=== PATIENT | female | born 1995 | race Two or more races ===

== ENCOUNTER 2018-11-28 15:00 | Outpatient (AMBR) | payer MEDICAID, SELFPAY ==
--- NOTE | 2018-11-08 13:43 | PT.ODAYNRPT ---
PT Outpatient Daily Note Date of Service: November 08, 2018 OP Daily Note Visit Reasons: pain Outpatient Physical Therapy Treatment Date: 11/08/18 Subjective: pt reported having increase in pain upon visit today. Objective: see flow sheet. Assessment: pt walked in wearing sandals which could be risky while performing balance exercises. advised pt to wear shoes next visit for safety. pt did have improved balance on the rocker board as indicated by less use of the rail. she did use one hand with only finger tips. pt was more concentrated on balance control. squatting on the board still required one hand assistance but had good posture. pt requested hot pack post ther ex. Plan: continue POC per PT. Length of Time (minutes) of Treatment: 30 Minutes Office Procedures PT Procedures PT Date of Service: 11/08/18 Therapeutic Exercise 30 minutes: Yes
--- NOTE | 2018-11-12 14:02 | PT.ODAYNRPT ---
PT Outpatient Daily Note Date of Service: November 12, 2018 OP Daily Note Visit Reasons: pain Outpatient Physical Therapy Treatment Date: 11/12/18 Subjective: Pt says she is doing well and the foot is doing better, less pain Objective: See F/S for therex MT: PPM into great toe flexion x7' 15 holds, scar STM Great toe flexion: 0 deg Assessment: Pt lacks great toe flexion A/PROM to neutral due to extensor tendon myofascial tightness. End-range extension is painful which limits extension PROM but she has good stepping and lunging tolerance. Plan: Improve great toe flexion ROM Length of Time (minutes) of Treatment: 30 Minutes Office Procedures PT Procedures PT Date of Service: 11/12/18 Therapeutic Exercise 30 minutes: Yes PT Procedures PT Date of Service: 11/08/18 Therapeutic Exercise 30 minutes: Yes
--- NOTE | 2018-11-15 11:44 | PT.ODAYNRPT ---
PT Outpatient Daily Note Date of Service: November 15, 2018 OP Daily Note Visit Reasons: pain Outpatient Physical Therapy Treatment Date: 11/15/18 Subjective: pt reports ankle popping more often. she followed up with doctor yesterday and they ordered an x-ray for the R ankle. Objective: see flow sheet. Assessment: added new exercises to increase strength of the BLE using resistance. pt had more difficulty with the monster walks than the side steps using thera band. after a few attempts of the monster walks she was able to improve the exercise. calf raises on the rocker board were a bit challenging and noted less than normal ROM of the PF motion. heat pack post ther ex. Plan: continue POC per PT. attempt the TM next visit. Length of Time (minutes) of Treatment: 30 Minutes Office Procedures PT Procedures PT Date of Service: 11/12/18 Therapeutic Exercise 30 minutes: Yes PT Procedures PT Date of Service: 11/15/18 Therapeutic Exercise 30 minutes: Yes PT Procedures PT Date of Service: 11/08/18 Therapeutic Exercise 30 minutes: Yes
--- NOTE | 2018-11-19 16:32 | PT.ODAYNRPT ---
PT Outpatient Daily Note Date of Service: November 19, 2018 OP Daily Note Visit Reasons: pain Outpatient Physical Therapy Treatment Date: 11/19/18 Subjective: Pt says the foot on the bottom is hurting more today and points to the met heads. Objective: See F/S for therex MT: PPM into great toe flexion, 15 holds, STM over met heads x7' Great toe flexion: 0 deg Assessment: Pt lacks great toe flexion A/PROM to neutral due to extensor tendon myofascial tightness. End-range extension is painful which limits extension PROM but she has good stepping and lunging tolerance. Mod High TTP of plantar aspect of foot. Plan: Improve great toe flexion ROM Length of Time (minutes) of Treatment: 30 Minutes Office Procedures PT Procedures PT Date of Service: 11/12/18 Therapeutic Exercise 30 minutes: Yes PT Procedures PT Date of Service: 11/15/18 Therapeutic Exercise 30 minutes: Yes PT Procedures PT Date of Service: 11/19/18 PT Procedures PT Date of Service: 11/08/18 Therapeutic Exercise 30 minutes: Yes
--- NOTE | 2018-11-28 15:41 | PT.ODAYNRPT ---
PT Outpatient Daily Note Date of Service: November 28, 2018 OP Daily Note Visit Reasons: pain Outpatient Physical Therapy Treatment Date: 11/28/18 Subjective: Pt says the foot on the bottom is hurting more today and points to the met heads. Objective: See F/S for therex MT: PPM into great toe flexion, 15 holds, STM over met heads x5' Great toe flexion: 0 deg Assessment: Pt lacks great toe flexion A/PROM to neutral due to extensor tendon myofascial tightness. End-range extension is painful which limits extension PROM but she has good stepping and lunging tolerance. Mod High TTP of plantar aspect of foot. Plan: Improve great toe ROM Length of Time (minutes) of Treatment: 30 Minutes Office Procedures PT Procedures PT Date of Service: 11/12/18 Therapeutic Exercise 30 minutes: Yes PT Procedures PT Date of Service: 11/15/18 Therapeutic Exercise 30 minutes: Yes PT Procedures PT Date of Service: 11/19/18 Therapeutic Exercise 30 minutes: Yes PT Procedures PT Date of Service: 11/08/18 Therapeutic Exercise 30 minutes: Yes PT Procedures PT Date of Service: 11/28/18 OP PT Eval Mod Complex 30 minutes: Yes
== END 2018-12-05 23:59 | disposition home or self-care (01) ==
PROVIDERS: PCP Family Medicine; Referring Provider Family Medicine; Visit Provider Physician Assistant
DX: M79.671 Pain in right foot (principal); Z98.890 Other specified postprocedural states; R26.2 Difficulty in walking, not elsewhere classified; I10 Essential (primary) hypertension
CPT/HCPCS: 97110

== ENCOUNTER 2024-10-19 20:20 | Emergency (ER) | payer MEDICAID, SELFPAY ==
[2024-10-19 20:21] VITALS: BMI 23.8
[2024-10-19 21:29] VITALS: BP 110/61; PULSE 115; RESP 22; TEMP 39.5; O2SAT 96
--- NOTE | 2024-10-19 21:46 | EKG_ITS ---
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
--- NOTE | 2024-10-19 21:46 | XR_ITS ---
Examination: PA lateral chest 2 views Technique: Upright PA lateral chest 2 views Exam date and time: October 19, 2024 2153 hrs. Indications: Sepsis protocol, chills fever pain chest since yesterday Findings: Normal heart size. Lungs are clear. The osseous structures are intact with moderate thoracic dextroscoliosis Impression: No pneumonia identified
--- NOTE | 2024-10-19 21:48 | PD.EDRME ---
Rapid Medical Screening Exam RME Arrival date/time: 10/19/24 20:20 29-year-old female presents emergency department complaining of headache, fever, and shortness of breath since yesterday. Chief Complaint: Flu Like Symptoms Time Seen by Provider: 10/19/24 21:20 Vital signs: Vital Signs Temperature 103.1 F H 10/19/24 21:29 Pulse Rate 115 H 10/19/24 21:29 Respiratory Rate 22 H 10/19/24 21:29 Blood Pressure 110/61 10/19/24 21:29 Pulse Oximetry (%) 96 10/19/24 21:29 Oxygen Delivery Method Room Air 10/19/24 21:29 Vital signs reviewed by provider: Yes
[2024-10-19 22:07] VITALS: TEMP 39.5
[2024-10-19] MEDS: ACETAMINOPHEN 500 MG TABLET 1000 MG PO (22:07)
[2024-10-19 22:26] LABS: Lactate (Lactic Acid) 1.1 mMol/L (0.4-2.0)
[2024-10-19 22:27] LABS: Basophils % (Auto) 0 % (0-2.5); Eosinophils % (Auto) 0 % (0-10); Hematocrit 39.5 % (36.0-46.0); Hemoglobin 13.2 g/dL (12.0-16.0); Immature Granulocytes % (Auto) 0 % (0-0); Immature Granulocytes Auto 0.03 Thou/mm3 (0.00-0.00); Lymphocytes # (Auto) 1.1 Thou/mm3 (1.0-4.8); Lymphocytes % (Auto) 12 % (10-50); Mean Corpuscular HGB Conc 33.4 g/dl (31.0-37.0); Mean Corpuscular Hemoglobin 32.7 pg (25.0-35.0); Mean Corpuscular Volume 98 fL (80-100); Monocytes # (Auto) 0.6 Thou/mm3 (0.0-0.8); Monocytes % (Auto) 7 % (0-12); Neutrophils # (Auto) 7.3 Thou/mm3 (1.8-7.7); Neutrophils % (Auto) 81 % (37-80); Nucleated Red Blood Cell % 0 /100 WBC (0); Platelet Count 212 Thou/mm3 (140-440); RDW Standard Deviation 43.5 fL (36.4-46.3); Red Blood Count 4.04 Miln/mm3 (4.00-5.20)
[2024-10-19 22:53] LABS: Collection Type, Urine Clean Catch
[2024-10-19 23:05] LABS: Partial Thromboplastin Time 30.4 Seconds (22.0-36.0); Prothrombin Time 11.4 Seconds (9.0-12.2)
[2024-10-19 23:14] LABS: Alanine Aminotransferase 18 U/L (10-49); Albumin, Serum 4.7 gm/dL (3.5-5.0); Albumin/Globulin Ratio 1.7 (1.2-2.2); Alkaline Phosphatase 70 U/L (46-116); Anion Gap 9 (7-16); Aspartate Amino Transferase 26 U/L (0-34); BUN/Creatinine Ratio 11 Ratio (12-20); Bilirubin,Total 0.6 mg/dL (0.3-1.2); Blood Urea Nitrogen 8 mg/dL (9-23); Calcium 9.7 mg/dL (8.3-10.6); Calcium (Corrected) 9.7 mg/dL (8.5-10.1); Carbon Dioxide 25.5 mMol/L (20.0-31.0); Chloride 101 mMol/L (98-107); Creatinine (Component) 0.7 mg/dL (0.6-1.3); Globulin 2.8 gm/dL (2.3-3.5); Glucose 117 mg/dL (74-106); Lipase 34 U/L (12-53); Magnesium 1.6 mg/dL (1.6-2.6); Osmolality,Calculated 269 (275-295); Phosphorous 2.6 mg/dL (2.4-5.1); Potassium 3.7 mMol/L (3.4-5.1); Procalcitonin 0.24 ng/ml (0.0-0.49); Sodium 135 mMol/L (136-145); Total Protein 7.5 gm/dL (5.7-8.2); Troponin I < 0.002 ng/mL (0.0-0.045); eGFR > 60 See Note
[2024-10-19 23:22] LABS: Bacteria,Urine 1+; Bilirubin,Urine Negative (Negative); Blood,Urine Trace (Negative); Clarity,Urine Turbid (Clear/Hazy); Color,Urine Lt-Yellow (Lt Yel-Yel); Glucose, Urine Negative (Negative); Ketones,Urine Negative (Negative); Leukocyte Esterase,Urine Positive (Negative); Nitrite,Urine Positive (Negative); Protein,Urine Trace (Neg - Trace); RBC,Urine 5 /hpf (0-3); Specific Gravity,Urine 1.019 (1.001-1.035); Squamous Epithelial Cell,Urine 8 /hpf (0-5); WBC,Urine 26 /hpf (0-5)
[2024-10-19 23:23] VITALS: BP 128/81; PULSE 107; RESP 18; TEMP 38.2; O2SAT 100
[2024-10-19 23:27] LABS: B-Type Natriuretic Peptide < 20 pg/mL (0-100)
--- NOTE | 2024-10-20 | EDNOTE_ITS ---
<Statement entered by Ilda Herring MD - 10/29/24 11:49> As co-signing physician, I was present and available for consult prn. I concur with the plan and care as documented by the midlevel provider. Upper Respiratory Inf. RME/HPI General Chief Complaint: Flu Like Symptoms Stated Complaint: COUGH, FEVER AND SHAKING X2 DAYS Time Seen by Provider: 10/19/24 21:20 Source: patient Arrival date/time: 10/19/24 20:20 29-year-old female presents emergency department complaining of headache, fever, and shortness of breath since yesterday. Mode of arrival: ambulatory Limitations: no limitations RME / HPI RME / HPI Narrative: 10/19/24 20:20 29-year-old female presents emergency department complaining of headache, fever, and shortness of breath since yesterday. Related Data Home Medications ?Medication ?Instructions ?Recorded ?Confirmed vits no.126-ferrous fum 1 tab PO DAILY 05/21/21 05/21/21 28 mg iron-folic acid 800 mcg tablet (Classic ) Previous Rx's ?Medication ?Instructions ?Recorded albuterol sulfate 90 mcg/actuation 2 puff inhalation Q6H PRN 10/19/22 aerosol inhaler (Ventolin HFA) shortness of breath or wheezing #8.5 grams promethazine-DM 6.25 mg-15 mg/5 mL 5 ml PO Q6H PRN cough #240 mL 10/19/22 oral syrup cyclobenzaprine 5 mg tablet 5 mg PO TID PRN muscle spasm #30 05/07/23 tabs ibuprofen 600 mg tablet 600 mg PO Q6H #30 tabs 05/07/23 ibuprofen 600 mg tablet 600 mg PO Q8H PRN pain #20 tabs 10/20/24 sulfamethoxazole 800 1 tab PO BID 7 days #14 tabs 10/20/24 mg-trimethoprim 160 mg tablet (Bactrim DS) Allergies Allergy/AdvReac Type Severity Reaction Status Date / Time lisinopril Allergy Severe Swelling Verified 07/28/23 14:51 of Lip/Tongue/Throat Review of Systems Review of Systems Systems Reviewed: All systems reviewed, normal except as documented Constitutional Constitutional: Reports system reviewed and no additional complaints, except as documented, Denies body ache(s), Denies chills, Reports fever(s) and Reports headache(s) Eyes Eyes: Reports system reviewed and no additional complaints, except as documented and Denies change in vision ENT Ears, Nose, Mouth, and Throat: Reports system reviewed and no additional complaints, except as documented, Denies disequilibrium, Denies dizziness, Reports headache(s), Denies sore throat and Denies vertigo Cardiovascular Cardiovascular: Reports system reviewed and no additional complaints, except as documented, Denies chest pain and Reports dyspnea Respiratory Respiratory: Reports system reviewed and no additional complaints, except as documented, Denies chest congestion, Denies cough and Reports dyspnea Gastrointestinal Gastrointestinal: Reports system reviewed and no additional complaints, except as documented, Denies abdominal pain, Denies nausea and Denies vomiting Musculoskeletal Musculoskeletal: Reports system reviewed and no additional complaints, except as documented, Denies abnormal gait and Denies arthralgias Integumentary/Breasts Skin/Breast: Reports system reviewed and no additional complaints, except as documented, Denies erythema, Denies rash and Denies wounds Neurologic Neurologic: Reports system reviewed and no additional complaints, except as documented, Denies abnormal gait, Denies disequilibrium, Denies dizziness, Reports headache(s) and Denies vertigo Past Medical History Past Medical History NEUROLOGIC: Negative Neurological Disorders CARDIAC: Positive Cardiac Disorders and Hypertension; Negative Congestive Heart Failure RESPIRATORY: Negative Chronic Obstructive Pulmonary Disease (COPD) GASTROINTESTINAL: Negative Gastrointestinal Disorders GENITOURINARY: Negative Genitourinary Disorders or Renal Disease REPRODUCTIVE: Positive Previous Pregnancies MUSCULOSKELETAL: Negative Musculoskeletal Disorders ENDOCRINE: Negative Endocrine Disorders, Diabetes Mellitus Type 1 or Diabetes Mellitus Type 2 HEMATOLOGIC: Negative Blood Disorders PSYCHO/SOCIAL: Positive Anxiety Social History SMOKING STATUS: Never smoker SUBSTANCE USE: does not use ED Exam General Limitations: Present no limitations General appearance: Present alert and in no apparent distress Head Head exam: Present atraumatic Eye Eye exam: Present normal appearance, PERRL and EOMI ENT ENT exam: Present normal exam, normal oropharynx and mucous membranes moist Neck Neck exam: Present normal inspection, full ROM and trachea midline Chest Chest inspection: Present normal inspection and symmetric chest wall rise Respiratory Respiratory exam: Present normal lung sounds bilaterally Cardiovascular Cardiovascular exam: Present regular rate, normal rhythm and normal heart sounds Abdominal Exam Abdominal exam: Present soft and normal bowel sounds Extremities Exam Extremities exam: Present normal inspection and full ROM Back Exam Back exam: Present normal inspection and full ROM Neurological Exam Neurological exam: Present alert, oriented X3 and CN II-XII intact Psychiatric Psychiatric exam: Present normal affect and normal mood Skin Skin exam: Present warm, dry, intact and normal color Course Quality Measures none Orders Category Date Time Status Bedside COVID-19 Antigen Test NOW Care 10/19/24 21:46 Completed Bedside Influenza A&B Antigen Test NOW Care 10/19/24 21:46 Completed EKG (ED ONLY) *Do not use* NOW Care 10/19/24 21:46 Completed EKG (ED Only) Stat Exams 10/19/24 21:46 Draft XR chest 2V Stat Exams 10/19/24 21:46 Completed B-Type Natriuretic Peptide Stat Lab 10/19/24 22:10 Completed Blood Culture (Lab) Stat Lab 10/19/24 22:10 Completed CBC Stat Lab 10/19/24 22:10 Completed Comprehensive Metabolic Panel Stat Lab 10/19/24 22:10 Completed Lactate (Lactic Acid) Stat Lab 10/19/24 22:10 Completed Lipase Stat Lab 10/19/24 22:10 Completed Magnesium Stat Lab 10/19/24 22:10 Completed Partial Thromboplastin Time Stat Lab 10/19/24 22:10 Completed Phosphorous Stat Lab 10/19/24 22:10 Completed Procalcitonin Stat Lab 10/19/24 22:10 Completed Prothrombin Time with INR Stat Lab 10/19/24 22:10 Completed Troponin I Stat Lab 10/19/24 22:10 Completed Urinalysis Stat Lab 10/19/24 22:12 Completed Urine Culture Stat Lab 10/19/24 22:12 Completed Acetaminophen Tab [Tylenol ES Tab] Med 10/19/24 21:47 Discontinued 1,000 mg PO X1 ONE Vital Signs Vital signs: Vital Signs Temperature 103.1 F H 10/19/24 21:29 Pulse Rate 115 H 10/19/24 21:29 Respiratory Rate 22 H 10/19/24 21:29 Blood Pressure 110/61 10/19/24 21:29 Pulse Oximetry (%) 96 10/19/24 21:29 Oxygen Delivery Method Room Air 10/19/24 21:29 96% RA WNL. Procedures -ED EKG Interpretation #1: Date of EK10/19/24 Time of EK:22 Rate: 106 Interpretation: Interpreted by me EKG Impression: No acute ST-T changes, No ectopy, No ischemic changes, Sinus tachycardia and Normal QRS Upper Respiratory Infection MDM Narrative MDM Narrative:: 29-year-old female presents emergency department complaining of headache, fever, and shortness of breath since yesterday. SIRS criteria met due to fever and tachycardia. normal lactic and chest XR unremarkable. Lab work was unremarkable other than positive for influenza and urinalysis suggestive of acute UTI. Patient appears non toxic and hemodynamically stable. Patient data External records reviewed:: [facility] previous records Clinical information provided by:: patient and family Social determinants that could affect healthcare access:: none Patient has the following chronic illnesses:: see chart How is presenting disease/condition affected by chronic disease/condition?: uneffected by Evaluation data The following diagnostics were reviewed and interpreted by me:: lab results, radiology exam(s) and EKG tracing(s) Lab and/or radiology exams considered but not ordered:: ordered Interpretation Summary: interpreted by me Medications / Prescriptions Medications or Prescriptions considered but not ordered:: ordered Medication administrations:: Medication Administration History Discontinued Medications Acetaminophen (Acetaminophen 500 Mg Tablet) 1,000 mg PO X1 ONE Stop: 10/19/24 21:48 Last Admin: 10/19/24 22:07 Dose: 1,000 mg Documented By: given Consultations Consultation(s) initiated? (list below): No Diagnosis Upper Respiratory Differential Diagnosis: upper respiratory infection, sinusitis, viral infection, bronchitis, influenza and pharyngitis Most likely diagnosis given after review of the tests above:: influenza UTI Admission Indicated Admission indicated?: not indicated Admission Request Was there a request for admission?: No Disposition Plan Disposition Plan: Discharge Discharge Attestation Discharge Attestation: The patient and all family members were given an opportunity to ask questions and understood the discharge instructions. Discharge instructions specifically effects, indications for sooner follow up or return to the emergency department, and the expected course of current diagnosis. Patient condition: Stable Discharge Plan Plan Patient Disposition: HOME (Self Care) Disposition Comment: Stable Prescriptions/Referrals Prescriptions/Med Rec: New sulfamethoxazole-trimethoprim [Bactrim DS] 800-160 mg tablet 1 tab PO BID 7 Days Qty: 14 0RF ibuprofen 600 mg tablet 600 mg PO Q8H PRN (Reason: pain) Qty: 20 0RF No Action Classic 28 mg iron- 800 mcg tablet 1 tab PO DAILY Patient Comments: TAKE 1 TABLET BY MOUTH EVERY DAY FOR 30 DAYS promethazine-DM 6.25-15 mg/5 mL syrup 5 ml PO Q6H PRN (Reason: cough) Qty: 240 0RF albuterol sulfate [Ventolin HFA] 90 mcg/actuation HFA aerosol inhaler 2 puff inhalation Q6H PRN (Reason: shortness of breath or wheezing) Qty: 8.5 0RF ibuprofen 600 mg tablet 600 mg PO Q6H Qty: 30 0RF cyclobenzaprine 5 mg tablet 5 mg PO TID PRN (Reason: muscle spasm) Qty: 30 0RF Referrals: Gustavo Weber MD [Primary Care Provider] - In 1 week Problem List Clinical Impression: Influenza, UTI (urinary tract infection) Patient/Caregiver Discharge Instructions Discharge Activity: activity as tolerated Education Materials: ED Influenza (Adult), ED CYSTITIS Female Adult Additional Instructions: Take ibuprofen or Tylenol as needed for fever or pain. Drink plenty of fluids to stay hydrated and get plenty of rest. Urinalysis consistent with UTI take antibiotic as prescribed. Follow-up with primary care provider in 2 to 3 days. Return to the emergency department for any worsening symptoms or as needed. Print Language: Yakut Stand Alone Forms: [facility] Award Info., Patient Portal Info Letter PA/JUANA Supervising Physician PA/JUANA Supervising Physician: Dr. Herring
[2024-10-20 00:04] VITALS: TEMP 38.2
== END 2024-10-20 00:11 | disposition home or self-care (01) ==
PROVIDERS: Emergency Provider Emergency Medicine; PCP Family Medicine
DX: J11.1 Influenza due to unidentified influenza virus with other respiratory manifestations (principal); N39.0 Urinary tract infection, site not specified; R00.0 Tachycardia, unspecified; I10 Essential (primary) hypertension
CPT/HCPCS: 36415; 71046; 80053; 81001; 83605; 83690; 83735; 83880; 84100; 84145; 84484; 85025; 85610; 85730; 87040; 87077; 87086; 87186; 87400; 87811; 93005; 99283; A9270

== ENCOUNTER 2024-11-11 12:49 | Emergency (ER) | payer MEDICAID, SELFPAY ==
[2024-11-11 13:08] VITALS: BP 168/105; PULSE 91; RESP 18; TEMP 36.7; O2SAT 100; BMI 23.7
--- NOTE | 2024-11-11 13:09 | EKG_ITS ---
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
--- NOTE | 2024-11-11 13:10 | PD.EDANX ---
ED Anxiety RME/HPI General Chief Complaint: Shortness of Breath/Dyspnea Stated Complaint: sudden onset sob x 20 minutes ago Time Seen by Provider: 11/11/24 13:01 Arrival date/time: 11/11/24 12:49 RME / HPI RME / HPI narrative: This section includes all my notes and documentations, including HPI, PE, and ED course.? Delio Claire MD HPI: 29 year old female with a history of anxiety presents to the ED with complaints of shortness of breath, chest heaviness, and heightened anxiety. She reports that these symptoms are similar to previous episodes of anxiety, which typically resolve on their own. Other symptoms can include fear, pounding and racing heart, sweating, chills, shaking, stomach pain, nausea, numbness and tingling in the hands and feet and face, confusion, hot flashes, and feeling faint. Reports frequent episodes since yesterday. No other complaints. ROS: All negative except as documented in HPI. Physical Exam: General:? Alert and oriented.??Appears anxious. Eyes:? Conjunctivae and lids clear.?? ENT:? No nasal congestion.?? Neck:? Supple.?? Heart: RRR. Lungs:? No respiratory distress. Good air movement.? No rhonchi, wheezing, rales.?? Skin:? Warm and dry.?? Neuro:? Alert and oriented X 3.?? I reviewed all diagnostic test results. My interpretation of the EKG is?sinus rhythm with no acute ST?T changes. Blood tests unremarkable, including negative troponin. At this point, diagnoses include?anxiety. Treatment here included?Xanax. Oral KCl 40 mEq given for hypokalemia. Significant improvement noted. Recommended more outpatient cardiac workup. Based on my best medical judgment, made decision no further evaluation or treatment indicated at this time.? Patient understands and agrees to the discharge instructions customized and printed, see below. Discharge instructions from Dr. Claire: 1. After extensive evaluation, there is no life-threatening condition.? Such as heart attack. 2. Your symptoms may be due to underlying stress or anxiety or nerves.? This is fairly common. 3. Take Xanax as needed.? Whether this helps or not will be valuable information to your private doctors. 4. See a private doctor on 11/12/2024 for recheck. Ask to review all test results and official radiology reports, to make sure you receive all necessary follow-ups and monitoring, including your potassium level which was very low today. To make sure there is no serious underlying heart condition, ask to help you get more tests for your heart that cannot be done here in the ER.? Such as Holter Monitor (cardiac monitoring at home from a day to even a month), heart stress test (on treadmill or with medication), echocardiogram (imaging of your heart structures), heart catherization (checking for blockages in your heart arteries), and a referral to see a Supervisor Record Press. 5. Seek immediate medical care with worsening or with any concerns.?? Related Data Home Medications ?Medication ?Instructions ?Recorded ?Confirmed vits no.[id number]-ferrous fum 1 tab PO DAILY 05/21/21 05/21/21 28 mg iron-folic acid 800 mcg tablet (Classic ) Previous Rx's ?Medication ?Instructions ?Recorded albuterol sulfate 90 mcg/actuation 2 puff inhalation Q6H PRN 10/19/22 aerosol inhaler (Ventolin HFA) shortness of breath or wheezing #8.5 grams promethazine-DM 6.25 mg-15 mg/5 mL 5 ml PO Q6H PRN cough #240 mL 10/19/22 oral syrup cyclobenzaprine 5 mg tablet 5 mg PO TID PRN muscle spasm #30 05/07/23 tabs ibuprofen 600 mg tablet 600 mg PO Q6H #30 tabs 05/07/23 ibuprofen 600 mg tablet 600 mg PO Q8H PRN pain #20 tabs 10/20/24 alprazolam 0.5 mg tablet (Xanax) 0.5 mg PO BID PRN anxiety #10 tabs 11/11/24 Allergies Allergy/AdvReac Type Severity Reaction Status Date / Time lisinopril Allergy Severe Swelling Verified 11/11/24 12:51 of Lip/Tongue/Throat Review of Systems Review of Systems Systems Reviewed: All systems reviewed, normal except as documented Past Medical History Past Medical History CARDIAC: Positive Cardiac Disorders and Hypertension REPRODUCTIVE: Positive Previous Pregnancies PSYCHO/SOCIAL: Positive Anxiety Social History SMOKING STATUS: Never smoker SUBSTANCE USE: does not use ED Exam Narrative Physical exam: As noted in HPI Course Quality Measures none Orders Category Date Time Status EKG (ED ONLY) *Do not use* NOW Care 11/11/24 13:09 Active EKG (ED Only) Stat Exams 11/11/24 13:09 Ordered CBC Stat Lab 11/11/24 13:10 Ordered CMP [Comprehensive Metabolic Panel] Stat Lab 11/11/24 13:10 Ordered Magnesium Stat Lab 11/11/24 13:10 Ordered TSH [Thyroid Stimulating Hormone] Stat Lab 11/11/24 13:10 Ordered Troponin I Stat Lab 11/11/24 13:10 Ordered ALPRazoLAM [Xanax] Med 11/11/24 13:09 Discontinued 0.5 mg PO X1 ONE Vital Signs Vital signs: Vital Signs Temperature 98.1 F 11/11/24 13:08 Pulse Rate 91 11/11/24 13:08 Respiratory Rate 18 11/11/24 13:08 Blood Pressure 168/105 H 11/11/24 13:08 Pulse Oximetry (%) 100 11/11/24 13:08 Oxygen Delivery Method Room Air 11/11/24 13:08 Anxiety MDM Narrative MDM Narrative: Padmini Dinh am scribing for and in the presence of Dr. Claire. Patient data External records reviewed:: [facility] previous records (I reviewed ED visit on 10/20/2024 ) Clinical information provided by:: patient Social determinants that could affect healthcare access:: mental health (anxiety ) Patient has the following chronic illnesses:: Anxiety How is presenting disease/condition affected by chronic disease/condition?: exacerbated by Evaluation data The following diagnostics were reviewed and interpreted by me:: lab results and EKG tracing(s) (My interpretation of the EKG is: Sinus tachycardia (113 bpm) with nonspecific ST-T changes. Delio Claire MD) Lab and/or radiology exams considered but not ordered:: None Interpretation Summary: Anxiety Medications / Prescriptions Medications or Prescriptions considered but not ordered:: None Medication administrations:: Medication Administration History Discontinued Medications Alprazolam (Alprazolam 0.25 Mg Tablet) 0.5 mg PO X1 ONE Stop: 11/11/24 13:10 Consultations Consultation(s) initiated? (list below): No Diagnosis Differential diagnosis anxiety: hyperventilation, panic disorder, acute anxiety and other (Palpitations) Most likely diagnosis given after review of the tests above:: Anxiety Admission Indicated Admission indicated?: not indicated Explain why admission is indicated or not indicated:: Does not meet admission criteria Admission Request Was there a request for admission?: No Disposition Plan Disposition Plan: Discharge Discharge Attestation Discharge Attestation: The patient and all family members were given an opportunity to ask questions and understood the discharge instructions. Discharge instructions specifically effects, indications for sooner follow up or return to the emergency department, and the expected course of current diagnosis. Patient condition: Stable Discharge Plan Plan Patient Disposition: HOME (Self Care) Prescriptions/Referrals Prescriptions/Med Rec: New alprazolam [Xanax] 0.5 mg tablet 0.5 mg PO BID PRN (Reason: anxiety) Qty: 10 0RF No Action Classic 28 mg iron- 800 mcg tablet 1 tab PO DAILY Patient Comments: TAKE 1 TABLET BY MOUTH EVERY DAY FOR 30 DAYS promethazine-DM 6.25-15 mg/5 mL syrup 5 ml PO Q6H PRN (Reason: cough) Qty: 240 0RF albuterol sulfate [Ventolin HFA] 90 mcg/actuation HFA aerosol inhaler 2 puff inhalation Q6H PRN (Reason: shortness of breath or wheezing) Qty: 8.5 0RF ibuprofen 600 mg tablet 600 mg PO Q6H Qty: 30 0RF cyclobenzaprine 5 mg tablet 5 mg PO TID PRN (Reason: muscle spasm) Qty: 30 0RF ibuprofen 600 mg tablet 600 mg PO Q8H PRN (Reason: pain) Qty: 20 0RF Referrals: Mounika Raza, POLITICAL CONSULTANT [Primary Care Provider] - In 1 week Problem List Clinical Impression: Palpitations Patient/Caregiver Discharge Instructions Discharge Activity: activity as tolerated Education Materials: ED Anxiety Reaction, ED Palpitations Additional Instructions: Discharge instructions from Dr. Claire: 1. After extensive evaluation, there is no life-threatening condition.? Such as heart attack. 2. Your symptoms may be due to underlying stress or anxiety or nerves.? This is fairly common. 3. Take Xanax as needed.? Whether this helps or not will be valuable information to your private doctors. 4. See a private doctor on 11/12/2024 for recheck. Ask to review all test results and official radiology reports, to make sure you receive all necessary follow-ups and monitoring, including your potassium level which was very low today. To make sure there is no serious underlying heart condition, ask to help you get more tests for your heart that cannot be done here in the ER.? Such as Holter Monitor (cardiac monitoring at home from a day to even a month), heart stress test (on treadmill or with medication), echocardiogram (imaging of your heart structures), heart catherization (checking for blockages in your heart arteries), and a referral to see a Supervisor Record [employer]. 5. Seek immediate medical care with worsening or with any concerns.?? Print Language: Pakistani Stand Alone Forms: [facility] Info., Patient Portal Info Letter
[2024-11-11 14:20] LABS: Basophils % (Auto) 0 % (0-2.5); Eosinophils % (Auto) 0 % (0-10); Hematocrit 37.2 % (36.0-46.0); Hemoglobin 12.5 g/dL (12.0-16.0); Immature Granulocytes % (Auto) 0 % (0-0); Immature Granulocytes Auto 0.01 Thou/mm3 (0.00-0.00); Lymphocytes # (Auto) 1.5 Thou/mm3 (1.0-4.8); Lymphocytes % (Auto) 31 % (10-50); Mean Corpuscular HGB Conc 33.6 g/dl (31.0-37.0); Mean Corpuscular Hemoglobin 32.6 pg (25.0-35.0); Mean Corpuscular Volume 97 fL (80-100); Monocytes # (Auto) 0.4 Thou/mm3 (0.0-0.8); Monocytes % (Auto) 8 % (0-12); Neutrophils % (Auto) 60 % (37-80); Nucleated Red Blood Cell % 0 /100 WBC (0); Platelet Count 191 Thou/mm3 (140-440); RDW Standard Deviation 44.9 fL (36.4-46.3); Red Blood Count 3.83 Miln/mm3 (4.00-5.20)
[2024-11-11 14:41] LABS: Troponin I < 0.002 ng/mL (0.0-0.045)
[2024-11-11 14:43] LABS: Alanine Aminotransferase 10 U/L (10-49); Albumin, Serum 4.8 gm/dL (3.5-5.0); Albumin/Globulin Ratio 1.7 (1.2-2.2); Alkaline Phosphatase 62 U/L (46-116); Anion Gap 9 (7-16); Aspartate Amino Transferase 13 U/L (0-34); BUN/Creatinine Ratio 12 Ratio (12-20); Bilirubin,Total 1.2 mg/dL (0.3-1.2); Blood Urea Nitrogen 7 mg/dL (9-23); Calcium 9.7 mg/dL (8.3-10.6); Calcium (Corrected) 9.7 mg/dL (8.5-10.1); Carbon Dioxide 26.1 mMol/L (20.0-31.0); Chloride 104 mMol/L (98-107); Creatinine (Component) 0.6 mg/dL (0.6-1.3); Estimated Creatinine Clearance 128.3 mL/min (>60); Globulin 2.9 gm/dL (2.3-3.5); Glucose 132 mg/dL (74-106); Magnesium 1.6 mg/dL (1.6-2.6); Osmolality,Calculated 277 (275-295); Potassium 2.9 mMol/L (3.4-5.1); Sodium 139 mMol/L (136-145); Thyroid Stimulating Hormone 1.73 uIU/mL (0.55-4.78); Total Protein 7.7 gm/dL (5.7-8.2); eGFR > 60 See Note
[2024-11-11] MEDS: ALPRazoLAM 0.25 MG TABLET 0.5 MG PO (14:49)
[2024-11-11] MEDS: POTASSIUM CHLORIDE 10% 20 MEQ/15 ML UDC 40 MEQ PO (15:18)
== END 2024-11-11 15:59 | disposition home or self-care (01) ==
PROVIDERS: Emergency Provider Emergency Medicine; PCP Nurse Practitioner Women's Health
DX: R00.2 Palpitations (principal); F41.9 Anxiety disorder, unspecified
CPT/HCPCS: 36415; 80053; 83735; 84443; 84484; 85025; 93005; 99283; A9270

== ENCOUNTER 2024-12-27 20:34 | Emergency (ER) | payer MEDICAID, SELFPAY ==
[2024-12-27 20:35] VITALS: BMI 22.2
[2024-12-27 20:56] VITALS: BP 122/88; PULSE 73; RESP 18; TEMP 36.9; O2SAT 99
--- NOTE | 2024-12-27 21:21 | EDNOTE_ITS ---
<Statement entered by Ilda Herring MD - 12/27/24 23:40> As co-signing physician, I was present and available for consult prn. I concur with the plan and care as documented by the midlevel provider. ED OB Contraction Preg RMI/HPI General Chief complaint: Vaginal Bleeding Stated complaint: vaginal bleeding since Sunday Time Seen by Provider: 12/27/24 21:07 Arrival date/time: 12/27/24 20:34 29F with history of HTN and anxiety presents to ED with several days of vaginal bleeding and pelvic pain. Patient's cycle are usually regular and she already had her period this month. However, patient recently stopped taking the Depo Provera shot. Limitations: no limitations Related Data Home Medications ?Medication ?Instructions ?Recorded ?Confirmed vits no.126-ferrous fum 1 tab PO DAILY 05/21/21 28 mg iron-folic acid 800 mcg tablet (Classic ) Previous Rx's ?Medication ?Instructions ?Recorded albuterol sulfate 90 mcg/actuation 2 puff inhalation Q 6H PRN 10/19/22 aerosol inhaler (Ventolin HFA) shortness of breath or wheezing #8.5 grams promethazine-DM 6.25 mg-15 mg/5 mL 5 ml PO Q6H PRN cou gh #240 mL 10/19/22 oral syrup cyclobenzaprine 5 mg tablet 5 mg PO TID PRN muscle spa sm #30 05/07/23 tabs ibuprofen 600 mg tablet 600 mg PO Q6H #30 tabs 05/07 ibuprofen 600 mg tablet 600 mg PO Q8H PRN pain #20 t abs 10/20/24 alprazolam 0.5 mg tablet (Xanax) 0.5 mg PO BID PRN anx iety #10 tabs 11/11/24 Allergies Allergy/AdvReac Type Severity Reaction Status Date / Time lisinopril Allergy Severe Swelling Verified 11/11/24 12:51 of Lip/Tongue/Throat Review of Systems Review of Systems Systems Reviewed: All systems reviewed, normal except as documented Constitutional Constitutional: Reports system reviewed and no additional complaints, except as documented, Denies fever(s) and Denies headache(s) ENT Ears, Nose, Mouth, and Throat: Denies disequilibrium and Denies headache(s) Cardiovascular Cardiovascular: Reports system reviewed and no additional complaints, except as documented, Denies chest pain and Denies dyspnea Respiratory Respiratory: Reports system reviewed and no additional complaints, except as documented, Denies cough and Denies dyspnea Gastrointestinal Gastrointestinal: Reports system reviewed and no additional complaints, except as documented, Denies abdominal pain, Denies nausea and Denies vomiting Genitourinary Genitourinary: Reports as per HPI, Reports abnormal vaginal bleeding and Reports pelvic pain Neurologic Neurologic: Reports system reviewed and no additional complaints, except as documented, Denies confusion, Denies disequilibrium and Denies headache(s) Psychiatric Psychiatric: Denies confusion Past Medical History Past Medical History NEUROLOGIC: Negative Neurological Disorders CARDIAC: Positive Cardiac Disorders and Hypertension; Negative Congestive Heart Failure RESPIRATORY: Negative Chronic Obstructive Pulmonary Disease (COPD) GASTROINTESTINAL: Negative Gastrointestinal Disorders GENITOURINARY: Negative Genitourinary Disorders or Renal Disease REPRODUCTIVE: Positive Previous Pregnancies MUSCULOSKELETAL: Negative Musculoskeletal Disorders ENDOCRINE: Negative Endocrine Disorders, Diabetes Mellitus Type 1 or Diabetes Mellitus Type 2 HEMATOLOGIC: Negative Blood Disorders PSYCHO/SOCIAL: Positive Anxiety Social History SMOKING STATUS: Never smoker SUBSTANCE USE: does not use ED Exam General Limitations: Present no limitations General appearance: Present alert and in no apparent distress Head Head exam: Present atraumatic Eye Eye exam: Present normal appearance, PERRL and EOMI ENT ENT exam: Present normal exam, normal oropharynx and mucous membranes moist Neck Neck exam: Present normal inspection, full ROM and trachea midline Chest Chest inspection: Present normal inspection and symmetric chest wall rise Respiratory Respiratory exam: Present normal lung sounds bilaterally Cardiovascular Cardiovascular exam: Present regular rate, normal rhythm and normal heart sounds Abdominal Exam Abdominal exam: Present soft and normal bowel sounds Extremities Exam Extremities exam: Present normal inspection and full ROM Back Exam Back exam: Present normal inspection and full ROM Neurological Exam Neurological exam: Present alert, oriented X3 and CN II-XII intact Psychiatric Psychiatric exam: Present normal affect and normal mood Skin Skin exam: Present warm, dry, intact and normal color Course Quality Measures none Orders Category Date Time Status Drug Screen,Urine Stat Lab 12/27/24 21:18 Received HCG Qualitative,Urine Stat Lab 12/27/24 21:18 Completed Ketorolac Inj [Toradol Inj] Med 12/27/24 22:07 Discontinued 60 mg IM X1 ONE Vital Signs Vital signs: Vital Signs Temperature 98.4 F 12/27/24 20:56 Pulse Rate 73 12/27/24 20:56 Respiratory Rate 18 12/27/24 20:56 Blood Pressure 122/88 H 12/27/24 20:56 Pulse Oximetry (%) 99 12/27/24 20:56 Oxygen Delivery Method Room Air 12/27/24 20:56 O2 at 99% on RA and WNLs Vaginal Bleeding MDM Narrative MDM Narrative: 29F with history of HTN and anxiety presents to ED with several days of vaginal bleeding and pelvic pain. Patient's cycle are usually regular and she already had her period this month. However, patient recently stopped taking the Depo Provera shot. Physical exam reveals no pelvic tenderness. Patient is afebrile, calm, and alert. HCG neg. Likely body readjusting to not being on Depo anymore (she had been on it for 6 years). Patient data External records reviewed:: [facility] previous records Clinical information provided by:: patient Social determinants that could affect healthcare access:: mental health Patient has the following chronic illnesses:: HTN and anxiety How is presenting disease/condition affected by chronic disease/condition?: exacerbated by Evaluation data The following diagnostics were reviewed and interpreted by me:: lab results Lab and/or radiology exams considered but not ordered:: ordered Interpretation Summary: above Medications / Prescriptions Medications or Prescriptions considered but not ordered:: ordered Medication administrations:: Medication Administration History Discontinued Medications Ketorolac Tromethamine (Ketorolac Inj 60 Mg/2 Ml Vial) 60 mg IM X1 ONE Stop: 12/27/24 22:08 above Consultations Consultation(s) initiated? (list below): No Diagnosis Vaginal Bleeding Differential Diagnosis: missed , threatened , dysfunctional uterine bleeding, menometrorrhagia, incomplete , ectopic without intrauterine , vaginal bleeding and other (depo withdrawal/adverse effect) Most likely diagnosis given after review of the tests above:: adverse effect of medroxyprogesterone Admission Indicated Admission indicated?: not indicated Admission Request Was there a request for admission?: No Disposition Plan Disposition Plan: Discharge Discharge Attestation Discharge Attestation: The patient and all family members were given an opportunity to ask questions and understood the discharge instructions. Discharge instructions specifically effects, indications for sooner follow up or return to the emergency department, and the expected course of current diagnosis. Patient condition: Stable Discharge Plan Plan Patient Disposition: HOME (Self Care) Disposition Comment: Stable Prescriptions/Referrals Prescriptions/Med Rec: No Action Classic 28 mg iron- 800 mcg tablet 1 tab PO DAILY Patient Comments: TAKE 1 TABLET BY MOUTH EVERY DAY FOR 30 DAYS promethazine-DM 6.25-15 mg/5 mL syrup 5 ml PO Q6H PRN (Reason: cough) Qty: 240 0RF albuterol sulfate [Ventolin HFA] 90 mcg/actuation HFA aerosol inhaler 2 puff inhalation Q6H PRN (Reason: shortness of breath or wheezing) Qty: 8.5 0RF ibuprofen 600 mg tablet 600 mg PO Q6H Qty: 30 0RF cyclobenzaprine 5 mg tablet 5 mg PO TID PRN (Reason: muscle spasm) Qty: 30 0RF ibuprofen 600 mg tablet 600 mg PO Q8H PRN (Reason: pain) Qty: 20 0RF alprazolam [Xanax] 0.5 mg tablet 0.5 mg PO BID PRN (Reason: anxiety) Qty: 10 0RF Referrals: Gustavo Weber MD [Primary Care Provider] - In 1 week Problem List Clinical Impression: Adverse effect of medroxyprogesterone Patient/Caregiver Discharge Instructions Additional Instructions: Please follow-up with PCP/OBGYN within 24-48 hours and return immediately if symptoms worsen. Print Language: Venezuelan Stand Alone Forms: Patient Portal Info Letter PA/LAND MANAGER Supervising Physician PA/LAND MANAGER Supervising Physician: Dr. Herring
[2024-12-27 22:02] LABS: HCG Qualitative,Urine Negative
[2024-12-27] MEDS: KETOROLAC INJ 60 MG/2 ML VIAL IM (22:24)
[2024-12-28 00:37] LABS: Amphetamine/Methamp Scrn,U Positive (Negative); Barbiturate Screen,Urine Negative (Negative); Benzodiazepines Screen,Urine Negative (Negative); Benzoylecgonine Screen, Ur Negative (Negative); Fentanyl Screen,Urine Negative (Negative); Opiate Screen,Urine Negative (Negative); THC Screen,Urine Negative (Negative)
== END 2024-12-27 22:29 | disposition home or self-care (01) ==
PROVIDERS: Physician Assistant; Emergency Provider Emergency Medicine; PCP Family Medicine
DX: N93.9 Abnormal uterine and vaginal bleeding, unspecified (principal); R10.2 Pelvic and perineal pain; T38.5X5A Adverse effect of other estrogens and progestogens, initial encounter; F41.9 Anxiety disorder, unspecified; I10 Essential (primary) hypertension; Z88.8 Allergy status to other drugs, medicaments and biological substances
CPT/HCPCS: 80307; 81025; 96372; 99283; J1885

== ENCOUNTER 2025-05-22 22:07 | Emergency (ER) | payer MEDICAID, SELFPAY ==
[2025-05-22 22:09] VITALS: BMI 19.8
[2025-05-22 22:17] VITALS: BP 138/87; PULSE 81; RESP 20; TEMP 36.9; O2SAT 99
--- NOTE | 2025-05-22 22:22 | XR_ITS ---
Examination: CT brain head without contrast. 2-D sagittal coronal reconstructions Date and time of exam:May 22, 2025 1053 hours INDICATIONS: Ground-level fall today with injury of the head, head pain CTDI: vol (mGy):47.7 DLP: (mGycm):892 Technique: Multiple CT axial sections of the brain have been obtained, 5 mm slice thickness. Contrast has not been administered. 2-D sagittal, coronal reconstructions have been obtained Low dose protocols were performed. One or more of the following dose reduction techniques were used; automated exposure control, adjustment of the mA and/or KV according to patient size, use of iterative reconstruction technique. Findings: No significant ventricular enlargement. Intra-axial or extra-axial hemorrhage density is not seen. No mass effect or midline shift Basal cisterns are not remarkable. Fourth ventricle is midline. Cranial vault intact. Impression: Negative for acute hemorrhage, mass effect or midline shift
--- NOTE | 2025-05-22 22:22 | XR_ITS ---
Examination: Left elbow 3 views Technique: Elbow AP, oblique, lateral 3 views Exam date and time: May 22, 2025 1034 hours INDICATIONS: Patient fell today with image of the elbow, elbow pain. FINDINGS: No fracture or dislocation. No foreign body IMPRESSION: No fracture or dislocation.
--- NOTE | 2025-05-22 22:22 | XR_ITS ---
Examination: CT cervical spine without contrast 2-D sagittal reconstructions 2-D coronal reconstructions 3-D reconstructions. Exam date and time:May 22, 2025 1054 hours INDICATIONS: Patient slipped and fell today with injury to the neck, neck pain CTDI:vol (mGy) 12.2 DLP: (mGycm) 257 Technique: Multiple 2 mm axial sections of the cervical spine have been obtained. The coronal and sagittal reconstructions have been obtained. 3-D reconstructions have been obtained. Low dose protocols were performed. One or more of the following dose reduction techniques were used; automated exposure control, adjustment of the mA and/or KV according to patient size, use of iterative reconstruction technique. Findings: Axial sections demonstrate intact base of the skull. C1 exhibit satisfactory relationship to the odontoid. No acute cervical vertebral body fracture seen. Alignment posterior spinous processes satisfactory. Impression: No acute cervical fracture.
--- NOTE | 2025-05-22 22:22 | XR_ITS ---
Examination: Wrist, left 3 views Technique: Wrist AP, oblique, lateral 3 views Date and time of exam: May 22, 2025 1029 hours INDICATIONS: Patient fell 2 years ago with injury to the wrist, wrist pain FINDINGS: No fracture or dislocation. No foreign body IMPRESSION: No fracture or dislocation
--- NOTE | 2025-05-22 23:03 | EDNOTE_ITS ---
Upper Extremity Injury RME/HPI General Chief Complaint: Extremity Injury, Upper Stated Complaint: SLIP AND FALL L ELBOW PAIN NECK PAIN Time Seen by Provider: 05/22/25 22:21 Arrival date/time: 05/22/25 22:07 30F with history of psych/drug use presents to ED with L elbow and neck pain after she slipped and fell yesterday at [employer]. Limitations: no limitations Related Data Home Medications ?Medication ?Instructions ?Recorded ?Confirmed vits no.[id number]-ferrous fum 1 tab PO DAILY 05/21/21 28 mg iron-folic acid 800 mcg tablet (Classic ) Previous Rx's ?Medication ?Instructions ?Recorded albuterol sulfate 90 mcg/actuation 2 puff inhalation Q 6H PRN 10/19/22 aerosol inhaler (Ventolin HFA) shortness of breath or wheezing #8.5 grams promethazine-DM 6.25 mg-15 mg/5 mL 5 ml PO Q6H PRN cou gh #240 mL 10/19/22 oral syrup cyclobenzaprine 5 mg tablet 5 mg PO TID PRN muscle spa sm #30 05/07/23 tabs ibuprofen 600 mg tablet 600 mg PO Q6H #30 tabs 05/07 ibuprofen 600 mg tablet 600 mg PO Q8H PRN pain #20 t abs 10/20/24 alprazolam 0.5 mg tablet (Xanax) 0.5 mg PO BID PRN anx iety #10 tabs 11/11/24 Allergies Allergy/AdvReac Type Severity Reaction Status Date / Time lisinopril Allergy Severe Swelling Verified 05/22/25 22:14 of Lip/Tongue/Throat Review of Systems Review of Systems Systems Reviewed: All systems reviewed, normal except as documented Constitutional Constitutional: Reports system reviewed and no additional complaints, except as documented, Denies fever(s) and Denies headache(s) ENT Ears, Nose, Mouth, and Throat: Denies disequilibrium, Denies headache(s) and Reports neck pain Cardiovascular Cardiovascular: Reports system reviewed and no additional complaints, except as documented, Denies chest pain and Denies dyspnea Respiratory Respiratory: Reports system reviewed and no additional complaints, except as documented, Denies cough and Denies dyspnea Gastrointestinal Gastrointestinal: Reports system reviewed and no additional complaints, except as documented, Denies abdominal pain, Denies nausea and Denies vomiting Musculoskeletal Musculoskeletal: Reports as per HPI, Reports arthralgias and Reports neck pain Neurologic Neurologic: Reports system reviewed and no additional complaints, except as documented, Denies confusion, Denies disequilibrium and Denies headache(s) Psychiatric Psychiatric: Denies confusion Past Medical History Past Medical History NEUROLOGIC: Negative Neurological Disorders CARDIAC: Positive Cardiac Disorders and Hypertension; Negative Congestive Heart Failure RESPIRATORY: Negative Chronic Obstructive Pulmonary Disease (COPD) GASTROINTESTINAL: Negative Gastrointestinal Disorders GENITOURINARY: Negative Genitourinary Disorders or Renal Disease REPRODUCTIVE: Positive Previous Pregnancies MUSCULOSKELETAL: Negative Musculoskeletal Disorders ENDOCRINE: Negative Endocrine Disorders, Diabetes Mellitus Type 1 or Diabetes Mellitus Type 2 HEMATOLOGIC: Negative Blood Disorders PSYCHO/SOCIAL: Positive Anxiety Social History SMOKING STATUS: Never smoker SUBSTANCE USE: does not use ED Exam General Limitations: Present no limitations General appearance: Present alert and in no apparent distress Head Head exam: Present atraumatic Eye Eye exam: Present normal appearance, PERRL and EOMI ENT ENT exam: Present normal exam, normal oropharynx and mucous membranes moist Neck Neck exam: Present normal inspection, full ROM and trachea midline Chest Chest inspection: Present normal inspection and symmetric chest wall rise Respiratory Respiratory exam: Present normal lung sounds bilaterally Cardiovascular Cardiovascular exam: Present regular rate, normal rhythm and normal heart sounds Abdominal Exam Abdominal exam: Present soft and normal bowel sounds Extremities Exam Extremities exam: Present full ROM Expanded Upper Extremity Exam Elbow exam: Present tenderness (L) Back Exam Back exam: Present normal inspection and full ROM Neurological Exam Neurological exam: Present alert, oriented X3 and CN II-XII intact Psychiatric Psychiatric exam: Present normal affect and normal mood Skin Skin exam: Present warm, dry, intact and normal color Course Quality Measures none Orders Category Date Time Status sling [Splint / Immobilizer] STAT Care 05/23/25 00:[address] cervical spine wo con Stat Exams 05/22/25 22:[address] head/brain wo con Stat Exams 05/22/25 22:22 Completed XR elbow comp LT min 3V Stat Exams 05/22/25 22:22 Completed XR wrist comp LT min 3V Stat Exams 05/22/25 22:22 Completed Naproxen [Naprosyn] Med 05/22/25 22:22 Discontinued 500 mg PO X1 ONE Vital Signs Vital signs: Vital Signs Temperature 98.4 F 05/22/25 22:17 Pulse Rate 81 05/22/25 22:17 Respiratory Rate 20 05/22/25 22:17 Blood Pressure 138/87 H 05/22/25 22:17 Pulse Oximetry (%) 99 05/22/25 22:17 Oxygen Delivery Method Room Air 05/22/25 22:17 O2 at 995 on RA and WNLs Extremity Injury MDM Narrative MDM Narrative:: 30F with history of psych/drug use presents to ED with L elbow and neck pain after she slipped and fell yesterday at [employer]. Physical exam reveals L elbow tenderness. ROM limited. Gait normal. No gross head/neck trauma. Normal WOB. Patient is afebrile, calm, and alert. CT and XR unremarkable. 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 Patient data External records reviewed:: [facility] previous records Clinical information provided by:: patient Social determinants that could affect healthcare access:: substance use Patient has the following chronic illnesses:: psych/drug How is presenting disease/condition affected by chronic disease/condition?: exacerbated by Evaluation data The following diagnostics were reviewed and interpreted by me:: radiology exam(s) Lab and/or radiology exams considered but not ordered:: ordered Interpretation Summary: above Medications / Prescriptions Medications or Prescriptions considered but not ordered:: ordered Medication administrations:: Medication Administration History Discontinued Medications Naproxen (Naproxen 250 Mg Tablet) 500 mg PO X1 ONE Stop: 05/22/25 22:23 Last Admin: 05/22/25 23:05 Dose: 500 mg Documented By: OA above Consultations Consultation(s) initiated? (list below): No Diagnosis Upper Extremity Injury Differential Diagnosis: sprain and strain of wrist, fracture of wrist, finger sprain, dislocation of finger, Colles' fracture, fracture of hand, dislocation of shoulder, fracture of humerus, fracture of clavicle and other (neck contusion/fx/sprain, contusion of soft tissue) Most likely diagnosis given after review of the tests above:: contusion of soft tissue Admission Indicated Admission indicated?: not indicated Admission Request Was there a request for admission?: No Disposition Plan Disposition Plan: Discharge Discharge Attestation Discharge Attestation: The patient and all family members were given an opportunity to ask questions and understood the discharge instructions. Discharge instructions specifically effects, indications for sooner follow up or return to the emergency department, and the expected course of current diagnosis. Patient condition: Stable Discharge Plan Plan Patient Disposition: HOME (Self Care) Discharge Disposition comment: Stable Prescriptions/Referrals Prescriptions/Med Rec: No Action Classic 28 mg iron- 800 mcg tablet 1 tab PO DAILY Patient Comments: TAKE 1 TABLET BY MOUTH EVERY DAY FOR 30 DAYS promethazine-DM 6.25-15 mg/5 mL syrup 5 ml PO Q6H PRN (Reason: cough) Qty: 240 0RF albuterol sulfate [Ventolin HFA] 90 mcg/actuation HFA aerosol inhaler 2 puff inhalation Q6H PRN (Reason: shortness of breath or wheezing) Qty: 8.5 0RF ibuprofen 600 mg tablet 600 mg PO Q6H Qty: 30 0RF cyclobenzaprine 5 mg tablet 5 mg PO TID PRN (Reason: muscle spasm) Qty: 30 0RF ibuprofen 600 mg tablet 600 mg PO Q8H PRN (Reason: pain) Qty: 20 0RF alprazolam [Xanax] 0.5 mg tablet 0.5 mg PO BID PRN (Reason: anxiety) Qty: 10 0RF Referrals: Milena Garcia PA-C [Primary Care Provider] - In 1 week Problem List Clinical Impression: Contusion of soft tissue Patient/Caregiver Discharge Instructions Education Materials: ED Contusion, Upper Extremity, ED Neck Sprain or Strain Additional Instructions: Please follow-up with PCP within 24-48 hours and return immediately if symptoms worsen. If problem persists, recommend outpatient PT and/or MRI follow-up. In the meantime, rest, use ice/heat, and/or compression. Print Language: Spanish Stand Alone Forms: Patient Portal Info Letter [place]UANA Supervising Physician [place] Supervising Physician: Dr. Claire
[2025-05-22] MEDS: NAPROXEN 250 MG TABLET 500 MG PO (23:05)
[2025-05-23 00:20] VITALS: BP 138/89; PULSE 85; RESP 19; O2SAT 97
== END 2025-05-23 00:21 | disposition home or self-care (01) ==
PROVIDERS: Emergency Provider Emergency Medicine; PCP Physician Assistant
DX: S10.93XA Contusion of unspecified part of neck, initial encounter (principal); W01.0XXA Fall on same level from slipping, tripping and stumbling without subsequent striking against object, initial encounter; M25.522 Pain in left elbow; S69.92XA Unspecified injury of left wrist, hand and finger(s), initial encounter; S09.90XA Unspecified injury of head, initial encounter
CPT/HCPCS: 70450; 72125; 73080; 73110; 99283; 99284; A9270

== ENCOUNTER → 2025-10-16 | Outpatient (CLI) | payer MEDICAID, SELFPAY ==
--- NOTE | 2025-10-16 09:00 | XR_ITS ---
Examination: Complete OB ultrasound greater than 14 weeks Date and time of exam: October 16, 2025, 0901 hours INDICATIONS: Unknown size and dates Findings: Viable intrauterine single fetus with single amniotic sac presentation variable Cardiac motion 145 bpm Placenta posterior grade 0 Umbilical cord insertion seen Amniotic fluid adequate Cervix 4.1 cm Ovaries obscured by bowel gas. Composite estimated gestational age based on BPD, head circumference, abdominal circumference, femur length is 14 weeks 5 days Estimated weight 101.6 g Survey of intracranial anatomy, spinal anatomy, abdominal anatomy, four-chamber heart performed with no abnormalities identified. Impression: Viable intrauterine gestation estimated gestational age 14 weeks 5 days.
== END | disposition home or self-care (01) ==
DX: O09.92 Supervision of high risk pregnancy, unspecified, second trimester (principal); Z3A.14 14 weeks gestation of pregnancy
CPT/HCPCS: 76805